=== PATIENT | female | born 1975 | race Caucasian/White ===

== ENCOUNTER 2016-07-02 14:52 | Emergency (ER) | payer OTHER ==
[2016-07-02 17:16] LABS: Hematocrit 31 % (35-47); Hemoglobin 9.8 g/dl (12.0-16.0); Mean Corpuscular HGB Conc 32 g/dl (31-36); Mean Corpuscular Hemoglobin 22 pg (27-31); Mean Corpuscular Volume 70 fL (80-97); Mean Platelet Volume 7 um3 (7.4-10.4); Red Cell Distribution Width 17 % (10.5-15); White Blood Count 7.9 10^3/ul (3.5-10.8)
[2016-07-02 17:18] LABS: Comments Flag Yes
[2016-07-02 17:19] LABS: Add Diff/Slide Review? Slide Review Added
[2016-07-02 17:32] LABS: ALT 105 U/L (7-52); AST 129 U/L (13-39); Albumin 4.1 g/dL (3.2-5.2); Alkaline Phosphatase 47 U/L (34-104); Anion Gap 8 mmol/L (2-11); BUN/Creatinine Ratio 12.9 (8-20); Blood Urea Nitrogen 8 mg/dL (6-24); C Reactive Protein 11.59 mg/L (< 5.00); CO2 Carbon Dioxide 24 mmol/L (22-32); Calcium 9.2 mg/dL (8.6-10.3); Chloride 102 mmol/L (101-111); EGFR African American 137.1 (>60); EGFR Non-African American 106.6 (>60); Globulin 3.4 g/dL (2-4); Glucose 114 mg/dL (70-100); Lipase 100 U/L (11.0-82.0); Potassium 3.3 mmol/L (3.5-5.0); Sodium 134 mmol/L (133-145); Total Protein 7.5 g/dL (6.4-8.9)
[2016-07-02 17:55] LABS: Hypochromasia 2+
[2016-07-02 17:57] LABS: Microcytosis 1+
[2016-07-02 18:04] LABS: Urine Bacteria Absent (Absent); Urine Bilirubin Negative (Negative); Urine Glucose Negative (Negative); Urine Nitrite Negative (Negative)
--- NOTE | 2016-07-02 18:59 | RAD ---
HISTORY: Right upper quadrant pain in a patient with a history of gallstones. COMPARISONS: Similar examination dated October 23, 2014 TECHNIQUE: Multiple transverse and longitudinal ultrasound images were obtained of the right upper quadrant. FINDINGS: LIVER: The liver is normal in dimensions and echogenicity. Normal hepatic and portal venous blood flow is duplicated with color flow imaging. There is no gross intrahepatic biliary duct dilatation. GALLBLADDER AND EXTRAHEPATIC BILIARY DUCT: Within the gallbladder lumen there are innumerable shadowing echogenic stones in the dependent portion similar to images acquired on October 23, 2014. There is no pericholecystic fluid or pathologic thickening of the gallbladder wall. The graphic design specialist reports a positive Rendon sign. The common bile duct is dilated to a maximum diameter of 14 mm. Approximately at the level of the pancreatic head there is a shadowing stone measuring 8 mm in diameter. PANCREAS: The portions of the pancreas not obscured by bowel gas are normal in appearance. RIGHT KIDNEY: The right kidney is normal in size, morphology and echogenicity. AORTA AND IVC: The visualized portions are normal in appearance and not pathologically dilated. IMPRESSION: SONOGRAPHIC FINDINGS INDICATE CHOLEDOCHOLITHIASIS WITH DILATATION OF THE COMMON BILE DUCT UP TO 14 MM. IF CLINICALLY WARRANTED FURTHER CHARACTERIZATION COULD BE MADE WITH A HIDA SCAN OR MRCP.
[2016-07-02] MEDS ORDERED: NS 0.9% 1000 ML* 1,000 ML IV ONE (19:56)
[2016-07-02 22:18] LABS: Total Bilirubin 1.1 mg/dL (0.2-1.0)
[2016-07-02 22:51] VITALS: BP 194/94
--- NOTE | 2016-07-02 23:46 | ED ---
Alaina Temple Erika, scribed for Haseeb Villarreal MD on 07/02/16 at 1740 . Abdominal Pain/Female - HPI Summary HPI Summary: Patient is a 40-year-old female presenting to the ED with a CC of RUQ and epigastric pain. Patient reports a Hx gallstones, and states this pain feels similar. She states she first developed pain on 06/30/2016, which improved yesterday, and was completely gone today. Then, she ate four cheese and peanut butter crackers, and the pain returned. Patient denies nausea or pain in the lower abdomen. Pain was not alleviated by antacid. Pt states that last time she had similar pain, she was given a surgical follow up, but was never able to make an appointment. She states she does not have a PCP. - History of Current Complaint Chief Complaint: EDAbdPain Stated Complaint: ABD PAIN Time Seen by Provider: 07/02/16 16:36 Hx Obtained From: Patient Onset/Duration: Lasting Hours, Still Present Timing: Constant Severity Currently: Moderate Pain Intensity: 7 Pain Scale Used: 0-10 Numeric Location: Discrete At: RUQ, Epigastric Radiates: No Aggravating Factor(s): Food Alleviating Factor(s): Nothing Associated Signs and Symptoms: Negative: Nausea Allergies/Adverse Reactions: Allergies Allergy/AdvReac Type Severity Reaction Status Date / Time No Known Allergies Allergy Verified 07/02/16 17:01 PMH/Surg Hx/FS Hx/Imm Hx Endocrine/Hematology History: Denies: Hx Diabetes GI History: Reports: Hx Gall Bladder Disease - gallstones Infectious Disease History: No Infectious Disease History: Denies: Traveled Outside the [place] in Last 30 Days - Family History Known Family History: Positive: Cardiac Disease, Diabetes - Social History Occupation: Employed Full-time Alcohol Use: Occasionally Hx Substance Use: No Substance Use Type: Reports: None Hx Tobacco Use: No Smoking Status (MU): Never Smoked Tobacco Review of Systems Negative: Fever Positive: Abdominal Pain. Negative: Nausea All Other Systems Reviewed And Are Negative: Yes Physical Exam Triage Information Reviewed: Yes Vital Signs On Initial Exam: Initial Vitals Temp Pulse Resp BP Pulse Ox 99 F 97 16 191/117 98 07/02/16 14:56 07/02/16 14:56 07/02/16 14:56 07/02/16 14:56 07/02/16 14:56 Vital Signs Reviewed: Yes Appearance: Positive: Well-Appearing, No Pain Distress, Obese Skin: Positive: Warm, Skin Color Reflects Adequate Perfusion, Dry Head/Face: Positive: Normal Head/Face Inspection Eyes: Positive: Normal ENT: Positive: Normal ENT inspection Neck: Positive: Supple, Nontender Respiratory/Lung Sounds: Positive: Clear to Auscultation, Breath Sounds Present Cardiovascular: Positive: RRR Abdomen Description: Positive: Soft, Other: - Tenderness RUQ and epigastrium Bowel Sounds: Positive: Present Musculoskeletal: Positive: Normal Neurological: Positive: Normal Psychiatric: Positive: Affect/Mood Appropriate Diagnostics - Vital Signs Vital Signs Temp Pulse Resp BP Pulse Ox 07/02/16 14:56 99 F 97 16 191/117 98 - Laboratory Lab Results: Lab Results 07/02/16 07/02/16 07/02/16 Range/Units 17:05 17:05 17:05 WBC 7.9 (3.5-10.8) 10^3/ul RBC 4.40 (4.0-5.4) 10^6/ul Hgb 9.8 L (12.0-16.0) g/dl Hct 31 L (35-47) % MCV 70 L (80-97) fL MCH 22 L (27-31) pg MCHC 32 (31-36) g/dl RDW 17 H (10.5-15) % Plt Count 290 (150-450) 10^3/ul MPV 7 L (7.4-10.4) um3 Neut % (Auto) 84.0 H (38-83) % Lymph % (Auto) 10.9 L (25-47) % Angelina % (Auto) 4.3 (1-9) % Eos % (Auto) 0.3 (0-6) % Baso % (Auto) 0.5 (0-2) % Absolute Neuts (auto) 6.6 (1.5-7.7) 10^3/ul Absolute Lymphs (auto) 0.9 L (1.0-4.8) 10^3/ul Absolute Monos (auto) 0.3 (0-0.8) 10^3/ul Absolute Eos (auto) 0 (0-0.6) 10^3/ul Absolute Basos (auto) 0 (0-0.2) 10^3/ul Absolute Nucleated RBC 0 10^3/ul Nucleated RBC % 0 Normal RBC Morphology Not Reportable Hypochromasia 2+ Microcytosis 1+ Elliptocytes 2+ Sodium 134 (133-145) mmol/L Potassium 3.3 L (3.5-5.0) mmol/L Chloride 102 (101-111) mmol/L Carbon Dioxide 24 (22-32) mmol/L Anion Gap 8 (2-11) mmol/L BUN 8 (6-24) mg/dL Creatinine 0.62 (0.51-0.95) mg/dL Est GFR ( Amer) 137.1 (>60) Est GFR (Non-Af Amer) 106.6 (>60) BUN/Creatinine Ratio 12.9 (8-20) Glucose 114 H (70-100) mg/dL Lactic Acid 0.7 (0.5-2.0) mmol/L Calcium 9.2 (8.6-10.3) mg/dL Total Bilirubin 1.30 H (0.2-1.0) mg/dL AST 129 H (13-39) U/L ALT 105 H (7-52) U/L Alkaline Phosphatase 47 (34-104) U/L C-Reactive Protein 11.59 H (< 5.00) mg/L Total Protein 7.5 (6.4-8.9) g/dL Albumin 4.1 (3.2-5.2) g/dL Globulin 3.4 (2-4) g/dL Albumin/Globulin Ratio 1.2 (1-3) Lipase 100 H (11.0-82.0) U/L Beta HCG, Quant < 0.60 mIU/mL Urine Color Urine Appearance Urine pH (5-9) Ur Specific Waves (1.010-1.030) Urine Protein (Negative) Urine Ketones (Negative) Urine Blood (Negative) Urine Nitrate (Negative) Urine Bilirubin (Negative) Urine Urobilinogen (Negative) Ur Leukocyte Esterase (Negative) Urine WBC (Auto) (Absent) Urine RBC (Auto) (Absent) Ur Squamous Epith Cells (Absent) Urine Bacteria (Absent) Urine Glucose (Negative) 07/02/16 07/02/16 07/02/16 Range/Units 17:54 21:55 21:55 WBC (3.5-10.8) 10^3/ul RBC (4.0-5.4) 10^6/ul Hgb (12.0-16.0) g/dl Hct (35-47) % MCV (80-97) fL MCH (27-31) pg MCHC (31-36) g/dl RDW (10.5-15) % Plt Count (150-450) 10^3/ul MPV (7.4-10.4) um3 Neut % (Auto) (38-83) % Lymph % (Auto) (25-47) % Angelina % (Auto) (1-9) % Eos % (Auto) (0-6) % Baso % (Auto) (0-2) % Absolute Neuts (auto) (1.5-7.7) 10^3/ul Absolute Lymphs (auto) (1.0-4.8) 10^3/ul Absolute Monos (auto) (0-0.8) 10^3/ul Absolute Eos (auto) (0-0.6) 10^3/ul Absolute Basos (auto) (0-0.2) 10^3/ul Absolute Nucleated RBC 10^3/ul Nucleated RBC % Normal RBC Morphology Hypochromasia Microcytosis Elliptocytes Sodium (133-145) mmol/L Potassium (3.5-5.0) mmol/L Chloride (101-111) mmol/L Carbon Dioxide (22-32) mmol/L Anion Gap (2-11) mmol/L BUN (6-24) mg/dL Creatinine (0.51-0.95) mg/dL Est GFR ( Amer) (>60) Est GFR (Non-Af Amer) (>60) BUN/Creatinine Ratio (8-20) Glucose (70-100) mg/dL Lactic Acid 0.5 (0.5-2.0) mmol/L Calcium (8.6-10.3) mg/dL Total Bilirubin 1.10 H (0.2-1.0) mg/dL AST 178 H (13-39) U/L ALT 146 H (7-52) U/L Alkaline Phosphatase (34-104) U/L C-Reactive Protein (< 5.00) mg/L Total Protein (6.4-8.9) g/dL Albumin (3.2-5.2) g/dL Globulin (2-4) g/dL Albumin/Globulin Ratio (1-3) Lipase (11.0-82.0) U/L Beta HCG, Quant mIU/mL Urine Color Yellow Urine Appearance Clear Urine pH 6.0 (5-9) Ur Specific Waves 1.006 L (1.010-1.030) Urine Protein Negative (Negative) Urine Ketones Trace H (Negative) Urine Blood 3+ H (Negative) Urine Nitrate Negative (Negative) Urine Bilirubin Negative (Negative) Urine Urobilinogen Positive H (Negative) Ur Leukocyte Esterase Trace H (Negative) Urine WBC (Auto) 1+(6-10/hpf) H (Absent) Urine RBC (Auto) 3+(>10/hpf) H (Absent) Ur Squamous Epith Cells Present H (Absent) Urine Bacteria Absent (Absent) Urine Glucose Negative (Negative) Result Diagrams: 07/02/16 17:05 07/02/16 17:05 Lab Statement: Any lab studies that have been ordered have been reviewed, and results considered in the medical decision making process. - EKG 15:39 Cardiac Rate: NL - at 82 bpm EKG Rhythm: Sinus Rhythm - Additional Comments Diagnostic Additional Comments: Gallbladder US read by radiologist -IMPRESSION: SONOGRAPHIC FINDINGS INDICATE CHOLEDOCHOLITHIASIS WITH DILATATION OF THE COMMON BILE DUCT UP TO 14 MM. IF CLINICALLY WARRANTED FURTHER CHARACTERIZATION COULD BE MADE WITH A HIDA SCAN OR MRCP. Re-Evaluation - Re-Evaluation First Eval Re-Evaluation Time: 19:54 Change: Improved Comment: Discussed results and possible need for transfer. Patient states pain is completely gone, so I will hydrate patient and re-check labs. Second Eval Re-Evaluation Time: 22:23 Change: Improved Comment: Discussed repeat lab results with patient. Patient is still pain-free. Will discharge with follow up Abdominal Pain Fem Course/Dx - Course Course Of Treatment: Ms Mandujano was found to have a common bile duct stone that was causing a mild increase in her transaminases and I recommended admission for ERCP. Unfortunately we had no GI coverage so that would involve transfer. She had become completely pain-free however and wanted to try it at home on a clear liquid diet. I recommended returning immediately for any fever or return of her pain and otherwise following up with GI. - Diagnoses Provider Diagnoses: Choledocholithiasis - Provider Notifications Discussed Care Of Patient With: Dr. Young (hospitalist) at 19:52 - recommends transfer [place] [facility] [place]. Discharge - Discharge Plan Condition: Stable Disposition: HOME Patient Education Materials: Gallstones (ED) Forms: *Work Release Referrals: Chavez CARMONA,Ismael Nuñez [Primary Care Provider] - Reji Jackman MD [Medical Doctor] - 2 Days Additional Instructions: Please follow up with GI. The documentation as recorded by the Alaina pak Erika accurately reflects the service I personally performed and the decisions made by me, Haseeb Villarreal MD.
== END 2016-07-02 22:50 | disposition home or self-care (01) ==
LOC: ED 14:52
DX: K80.50 Calculus of bile duct without cholangitis or cholecystitis without obstruction (principal)
CPT/HCPCS: 36415; 76705; 80053; 81003; 81015; 82247; 83605; 83690; 84450; 84460; 84702; 85025; 86140; 87086; 93005